=== PATIENT | female | born 1940 | race Caucasian/White ===

== ENCOUNTER → 2018-01-26 09:55 | Outpatient (CLI) | payer MEDICARE, SELFPAY | PROVIDERS: Referring Provider Nurse Practitioner; Visit Provider Nurse Practitioner | DX: N39.0 Urinary tract infection, site not specified (principal) | CPT/HCPCS: 87086 ==

== ENCOUNTER → 2019-04-08 10:32 | Outpatient (CLI) | payer MEDICARE, SELFPAY ==
[2019-01-18 10:22] VITALS: BMI 34.3
--- NOTE | 2019-04-08 11:32 | CT_ITS ---
STUDY: CT SCAN LOWER EXTREMITY RIGHT REASON FOR EXAM: Female, 78 years old. RT KNEE, JULIO CESAR PROTOCOL RADIATION DOSAGE (If Supplied By Facility): CTDIvol = ( 35.6 ) mGy, DLP = ( 2496.70 ) mGycm. Individualized dose optimization techniques were used for this CT.? TECHNIQUE: Multiple axial tomographic images were obtained from the hip joint down to the ankle joint. This is a pre robotic surgery tiny examination. COMPARISON: None. FINDINGS: Mild degree of the osteoarthritis of the hip joint with the spurring along the medial and lateral aspect of the femoral head. Marked degree of joint space narrowing along the medial compartment of knee joint with degenerative osteoarthritis. Moderate degree of narrowing of the patellofemoral joint with degenerative spurring. CT/Extremity Lower without Contra IMPRESSION: Preoperative scanning of the right lower extremity for robotic knee surgery. Electronically Signed: Timothy Steiner, at 14:51 EST , Service support ,
== END ==
PROVIDERS: Family Provider Internal Medicine; PCP Internal Medicine; Referring Provider Orthopaedic Surgery; Visit Provider Orthopaedic Surgery
DX: M17.12 Unilateral primary osteoarthritis, left knee (principal); M21.162 Varus deformity, not elsewhere classified, left knee; M17.11 Unilateral primary osteoarthritis, right knee; M21.161 Varus deformity, not elsewhere classified, right knee
CPT/HCPCS: 73700

== ENCOUNTER 2019-05-03 08:15 | Observation (INO) | payer MEDICARE, SELFPAY ==
[2019-01-18 10:22] VITALS: BMI 34.3
[2019-04-08 11:05] VITALS: BP 138/95; PULSE 82; RESP 16; TEMP 36.2; O2SAT 97; BMI 33.2
--- NOTE | 2019-04-08 11:16 | SDCEKG_ITS ---
Test Reason : Blood Pressure : / mmHG Vent. Rate : 072 BPM Atrial Rate : 072 BPM P-R Int : 154 ms QRS Dur : 120 ms QT Int : 438 ms P-R-T Axes : 048 -06 101 degrees QTc Int : 479 ms Normal sinus rhythm Left bundle branch block Abnormal ECG Confirmed by PRASANNA TOLBERT, EMILIANO ([id number]), copy editor MABEL FREIRE ([id number]) on 04/12/2019 12:10:25 PM Referred By: Huber Jean-Baptiste Confirmed By:EMILIANO MIMS MD
[2019-04-08 11:42] LABS: Absolute Lymphocyte Count 1.89 X10^3/uL (0.83-4.51); Absolute Neutrophil Count 3.3 X10^3/uL (2.0-7.7); Basophil# 0.04 X10^3/uL; Basophil% 0.7 % (0-1); Eosinophil# 0.17 X10^3/uL; Eosinophils% 2.8 % (0-5); Hematocrit 45.1 % (37-47); Hemoglobin 14.8 g/dL (12.0-15.0); Lymphocyte # 1.89 X10^3/ul (4.0); Lymphocyte % 31.6 % (19-41); Mean Corp Hgb Conc 32.8 g/dL (32-36); Mean Corpuscular Hgb 31.1 pg (27.0-32.0); Mean Corpuscular Volume 94.7 fL (81-99); Mean Platelet Vol. 9.7 fl (6.2-12.0); NRBC Flagged by Analyzer 0 % (0-5); Neutrophil # 3.28 X10^3/uL (2.7-7.7); Neutrophil % 54.7 % (47-70); Platelet Count 181 K/mm3 (150-450); RBC Distribution Width CV 12.5 % (11.6-14.6); RBC Distribution Width SD 44.1 fl (35.1-43.9); Red Blood Count 4.76 M/mm3 (4.2-5.4)
[2019-04-08 11:57] LABS: Anion Gap 3 (5-15); BUN 21 mg/dL (7-18); BUN/Creat Ratio 25.4 RATIO (10-20); Calcium,Total 9.3 mg/dL (8.5-10.1); Chloride 108 mmol/L (98-107); Creatinine, Serum 0.83 mg/dL (0.55-1.02); EST Glomerular Filtration Rate 71 mL/min (>60); Est Glom Filt Rate - Afr Amer 85 mL/min (>60); Estimated Creatinine Clearance 46.68 ml/min; Glucose 104 mg/dL (74-106); Potassium 4.1 mmol/L (3.5-5.1); Sodium Level 141 mmol/L (136-145)
[2019-05-03] VITALS (10 sets, daily range): BP systolic 85–148; BP diastolic 51–97; PULSE 68–96; RESP 16–18; TEMP 35.9–36.7; O2SAT 96–100; BMI 33.2
[2019-05-03] MEDS: Acetaminophen 500 MG Tablet 1000 MG PO ×3 (06:42→20:58)
[2019-05-03] MEDS: Magnesium Sulfate 4gm/100mL 4 GM/100 ML IV.SOLN. IV (06:42)
[2019-05-03] MEDS: Gabapentin 600 MG Tablet PO (06:43)
[2019-05-03] MEDS: Lactated Ringers 1,000 ML 100 ML IV ×3 (06:45→10:39)
[2019-05-03 07:46] LABS: Bedside Glucose 102 mg/dL (70-110)
--- NOTE | 2019-05-03 08:00 | KNEE_PTH ---
PATIENT: COLTON DIAZ LOC: [facility]3 U#:[id number] AGE/SX: 79/F ROOM: MS323 RE05/03/[address]: Dr. Huber Jean-Baptiste DO : 1940 BED: 1 DIS: 05/04/2019 SPEC #: [id number] RECD: 05/03/19 14:16 STATUS: CHRIS REObie #: [id number] KENNY: 05/03/19 08:[address]: Huber Jean-Baptiste DEPT: SURGICAL PATHOLOGY RECD BY: Reji Burton ENTERED: 05/03/19 14:16 SP TYPE: TOTAL KNEE OTHR DR: Dr. Shu Clements MD Tissues: Knee, NOS Procedures: Decalcification bone/plaque Surgery Specimen Level IV HEADER OPERATION: ERAS, total knee replacement robotic arm assist PRE-OP DIAGNOSIS: Bilateral knee osteoarthritis TISSUE SUBMITTED: Right knee bone MICROSCOPIC DIAGNOSIS Bone and soft tissue of right knee, total knee resection: Severe degenerative joint disease. AM:farida 05/06/19 MICROSCOPIC DESCRIPTION Slides are reviewed. GROSS DESCRIPTION Received is one container designated right knee bone. The specimen consists of multiple fragments of herbert-yellow bone measuring in aggregate 10 x 9 x 3 cm. No soft tissue is identified. A number of bony fragments contain articular surfaces consistent with tibial plateau and femoral condyle and displaying prominent osteophyte formation, eburnation, and bone erosion. Wheelchair Rental Clerk sections are submitted in one cassette after decalcification. / SJ:farida 05/03/19 TC:5 CPT: 77048, 51856
[2019-05-03] MEDS: Cefazolin 2 GM in 0.9% Normal Saline 100 ML IV (08:03)
[2019-05-03] MEDS: Betamethasone/Betamethasone 30 MG/5 ML Vial (09:57)
--- NOTE | 2019-05-03 10:24 | PCM.OPRPT ---
Report of Operation Date of Procedure: 05/03/19 Pre-Operative Diagnosis: OA b/l knees Post-Operative Diagnosis: same Surgery/Procedure Performed:: Right TKR -- robotically assisted. Intra-articular injection left knee electronics production supervisor: Tay Sanders Anesthesiologist: Mark Delcid - Admit VTE Documentation VTE Present on Admission: No VTE Mechan Device Prophylaxis: SCD's, Thigh High THEODORE Hose VTE Pharm Prophylaxis ordered?: Yes
--- NOTE | 2019-05-03 10:40 | RAD_ITS ---
STUDY: X-RAY - RIGHT KNEE REASON FOR EXAM: Female, 79 years old. POST OP KNEE REPLACEMENT TECHNIQUE: AP and lateral view(s) of the knee. COMPARISON: None. FINDINGS: The patient is status post total knee replacement. There is good alignment. Postoperative soft tissue changes. RAD/Knee 1 or 2 Views IMPRESSION: Total knee replacement. There is good alignment. Postoperative soft tissue changes. Electronically Signed: Timothy Steiner, at 15:02 EST , Service support ,
[2019-05-03 11:01] LABS: Hematocrit 39.5 % (37-47); Hemoglobin 13.1 g/dL (12.0-15.0); Mean Corp Hgb Conc 33.2 g/dL (32-36); Mean Corpuscular Hgb 31.2 pg (27.0-32.0); Mean Platelet Vol. 9.4 fl (6.2-12.0); Platelet Count 144 K/mm3 (150-450); RBC Distribution Width CV 12.3 % (11.6-14.6); RBC Distribution Width SD 42.5 fl (35.1-43.9); White Blood Count 7.3 K/mm3 (4.4-11.0)
[2019-05-03 11:14] LABS: Anion Gap 5 (5-15); BUN 15 mg/dL (7-18); BUN/Creat Ratio 18.1 RATIO (10-20); Calcium,Total 8.8 mg/dL (8.5-10.1); Chloride 111 mmol/L (98-107); Creatinine, Serum 0.83 mg/dL (0.55-1.02); EST Glomerular Filtration Rate 70 mL/min (>60); Est Glom Filt Rate - Afr Amer 85 mL/min (>60); Glucose 117 mg/dL (74-106); Potassium 3.5 mmol/L (3.5-5.1); Sodium Level 142 mmol/L (136-145)
[2019-05-03] MEDS: Cefazolin 1 GM/50 ML BAG IV (16:07)
[2019-05-03] MEDS: oxyCODONE 5 MG Tablet PO (16:37)
[2019-05-04] MEDS: Cefazolin 1 GM/50 ML BAG IV (00:08)
[2019-05-04] MEDS: 0.9% Saline Lock 10 ML Syringe IV (01:02)
[2019-05-04 05:17] VITALS: BP 138/64; PULSE 65; RESP 16; TEMP 36.6; O2SAT 93
[2019-05-04] MEDS: Acetaminophen 500 MG Tablet 1000 MG PO ×2 (05:30→14:58)
[2019-05-04 07:46] LABS: Hematocrit 39.3 % (37-47); Hemoglobin 13.1 g/dL (12.0-15.0); Mean Corp Hgb Conc 33.3 g/dL (32-36); Mean Corpuscular Hgb 31.2 pg (27.0-32.0); Mean Corpuscular Volume 93.6 fL (81-99); Mean Platelet Vol. 9.7 fl (6.2-12.0); Platelet Count 149 K/mm3 (150-450); RBC Distribution Width CV 12.2 % (11.6-14.6); RBC Distribution Width SD 42.3 fl (35.1-43.9); White Blood Count 11.3 K/mm3 (4.4-11.0)
[2019-05-04 07:55] LABS: Anion Gap 6 (5-15); BUN 16 mg/dL (7-18); BUN/Creat Ratio 13.9 RATIO (10-20); Calcium,Total 8.9 mg/dL (8.5-10.1); Chloride 107 mmol/L (98-107); Creatinine, Serum 1.15 mg/dL (0.55-1.02); EST Glomerular Filtration Rate 48 mL/min (>60); Est Glom Filt Rate - Afr Amer 58 mL/min (>60); Estimated Creatinine Clearance 33.13 ml/min; Glucose 134 mg/dL (74-106); Potassium 4.6 mmol/L (3.5-5.1); Sodium Level 139 mmol/L (136-145)
[2019-05-04 08:18] VITALS: BP 121/71; PULSE 61; RESP 16; TEMP 36.6; O2SAT 95
--- NOTE | 2019-05-04 08:21 | PN.ORTHO_ITS ---
Subjective: Patient sitting at bedside eating breakfast. Patient states pain is well- managed. Denies chest pain, shortness breath, calf pain, nausea vomiting. Patient states ready for discharge home today. No complaints Objective: Dressings clean dry intact. Negative signs and symptoms of DVT. I did review labs and vitals all noted in the medical record. Patient is afebrile, neurovascular is otherwise intact. Patient is no respiratory distress speaking in full sentences. - Physical Exam Vitals/I&O's: Vital Signs Temp Pulse Resp BP Pulse Ox 97.8 F 61 16 121/71 H 95 05/04/19 08:18 05/04/19 08:18 05/04/19 08:18 05/04/19 08:18 05/04/19 08:18 Oxygen Flow Rate (L/min) 6 Oxygen Delivery Method Room Air Weight: 87.7 kg Body Mass Index (BMI) 33.2 Intake and Output for Last 24 Hours 05/02/19 05/03/19 05/04/19 23:59 23:59 23:59 Intake Total 3326.67 / 3326.67 865.0 / 865.0 Balance 3326.67 / 3326.67 865.0 / 865.0 General: Alert, Oriented x3, Cooperative HEENT: PERRLA Oral: Moist Mucosa Neurological: Cranial nerves II-XII grossly intact Psych/Mental Status: Normal Affect, Alert and oriented to time, place, person, mood and affect Laboratory Results 05/03/19 10:43: WBC 7.3, RBC 4.20, Hgb 13.1, Hct 39.5, MCV 94.0, MCH 31.2, MCHC 33.2, RDW Std Deviation 42.5, RDW Coeff of Jasmyn 12.3, Plt Count 144 L, MPV 9.4 05/03/19 10:43: Sodium 142, Potassium 3.5, Chloride 111 H, Carbon Dioxide 26.0, Anion Gap 5, BUN 15, Creatinine 0.83, Estim Creat Clear Calc 45.90, Est GFR (MDRD) Af Amer 85, Est GFR (MDRD) Non-Af 70, BUN/Creatinine Ratio 18.1, Glucose 117 H, Calcium 8.8 05/04/19 07:30: WBC 11.3 H, RBC 4.20, Hgb 13.1, Hct 39.3, MCV 93.6, MCH 31.2, MCHC 33.3, RDW Std Deviation 42.3, RDW Coeff of Jasmyn 12.2, Plt Count 149 L, MPV 9.7 05/04/19 07:30: Sodium 139, Potassium 4.6, Chloride 107, Carbon Dioxide 26.0, Anion Gap 6, BUN 16, Creatinine 1.15 H, Estim Creat Clear Calc 33.13, Est GFR (MDRD) Af Amer 58 L, Est GFR (MDRD) Non-Af 48 L, BUN/Creatinine Ratio 13.9, Glucose 134 H, Calcium 8.9 Current Medications Acetaminophen (Tylenol) 1,000 mg PO Q8 [facility] Last Admin: 05/04/19 05:30 Dose: 1,000 mg Documented by: Aspirin (Aspirin, Baby) 81 mg PO BID [facility] Sodium Chloride () 500 mls @ 15 mls/hr IV PRN PRN PRN Reason: Blood Transfusion Sodium Chloride () 250 mls @ 15 mls/hr IV .[id number] PRN PRN Reason: Saline Flush Sodium Chloride () 250 mls @ 15 mls/hr IV .[id number] PRN PRN Reason: Additional IVPB Infusion Insulin Human Lispro (Humalog Kwikpen (Bkc)) 1 - 6 unit SC Q4H PRN PRN; Protocol PRN Reason: BG>/= 180, SEE PROTOCOL Losartan Potassium (Cozaar) 25 mg PO DAILY [facility] Last Admin: 05/03/19 12:07 Dose: Not Given Documented by: Magnesium Oxide (Mag-Ox 400) 400 mg PO DAILY [facility] Multivitamins (Multivitamin) 1 tablet PO DAILY@0800 [facility] Ondansetron HCl (Zofran) 4 mg IV Q8H PRN PRN PRN Reason: NAUSEA Oxycodone HCl (Oxyir) 5 - 10 mg PO Q4H PRN PRN PRN Reason: Pain Score 4-10/10 Last Admin: 05/03/19 16:37 Dose: 10 mg Documented by: Pantoprazole Sodium (Protonix) 40 mg PO DAILY [facility] Last Admin: 05/03/19 12:07 Dose: Not Given Documented by: Promethazine HCl (Phenergan) 12.5 mg IM Q6H PRN PRN; Protocol PRN Reason: NAUSEA/VOMITING Senna/Docusate Sodium (Senokot-S, Melinda-Colace) 2 tablet PO BID [facility] Last Admin: 05/03/19 20:58 Dose: Not Given Documented by: Sodium Chloride () 10 - 40 ml IV UD PRN PRN Reason: SALINE FLUSH Last Admin: 05/04/19 01:02 Dose: 10 ml Documented by: Medical Necessity - Tobacco Use Smoking Status: Never smoker Tobacco Use: Non-smoker Assessment/Plan All Active Problems (Last Updated 01/16/18 @ 16:30 by Anika España) Bladder spasm (Acute) Dysuria (Acute) Bronchitis (Acute) UTI (urinary tract infection) (Acute) Coughing (Acute) Maxillary sinusitis (Acute) Status post right total knee arthroplasty Plan 1. Continue all pain medications as prescribed 2. Continue physical therapy, weight-bear as tolerated with walker 3. Aspirin 81 mg 1 p.o. every 12 hours x30 days for postop DVT prophylaxis 4. Encourage incentive spirometry 5. Continue physical therapy outpatient 6. Discharge home today after p.m. therapy
[2019-05-04] MEDS: Losartan Potassium 25 MG Tablet PO (08:24)
[2019-05-04] MEDS: Pantoprazole Sodium 40 MG Tablet PO (08:24)
[2019-05-04] MEDS: Multivitamins,Therapeutic Tablet 1 TABLET PO (08:24)
[2019-05-04] MEDS: Aspirin 81 MG TAB.CHEW PO (08:24)
--- NOTE | 2019-05-04 08:28 | PCM.DC.TKR ---
Discharge Diet: No Restrictions Discharge Activity: May Not Drive, May Shower, Use Walker May shower in (days): 3 Ice area for (Minutes): 20 - each hour while awake. Weight Bearing Status: Weight bearing as tolerated Elevate: Operative Extremity Additional Activity Instructions:: Wear elastic stockings for 2 weeks after your surgery. Call your doctor if your incision/area has: Continuous Slow Oozing, Sudden Increased Bleeding, Increased Pain/ Swelling, Increased Redness, Foul Smelling Discharge Call your doctor if you observe: Fever of 101 or Higher, Coldness, Increased Pain - in extremity, Numbness or Tingling, Change in Color, Calf discomfort, Uncontrolled pain Change Dressing in (Days):: 0 - and daily as needed. Remove Dressing in (days):: 8 Cleanse incision/area with: Soap & Water Allergies/Adverse Reactions: Allergies No Known Allergies Allergy (Verified 05/03/19 06:22) Medications to take at Discharge magnesium 250 mg tablet 500 mg PO DAILY 01/16/18 multivitamin,[id number] 1 tab PO DAILY 01/16/18 pantoprazole 40 mg tablet,delayed release 40 mg PO DAILY 01/16/18 Losartan Potassium [Cozaar] 25 mg PO DAILY 04/08/19 Meloxicam [Mobic] 15 mg PO DAILY 04/08/19 Acetaminophen [Tylenol] 1,000 mg PO Q8 #90 tab 05/04/19 Aspirin [Aspirin, Baby] 81 mg PO BID #60 tab.chew 05/04/19 Oxycodone [Oxyir] 5 - 10 mg PO Q4H PRN PRN 7 Days #84 tab 05/04/19 Senna/Docusate Sodium [Senokot-S] 2 tab PO BID tab 05/04/19 The following prescriptions were given: Aspirin [Aspirin, Baby] 81 mg PO BID #60 tab.chew Transmission Status: Pending to [facility] Oxycodone [Oxyir] 5 - 10 mg PO Q4H PRN PRN 7 Days #84 tab PRN Reason: Pain Score 4-10/10 Transmission Status: Sent to [facility] Acetaminophen [Tylenol] 1,000 mg PO Q8 #90 tab Transmission Status: Pending to [facility] Primary Care Physician: Shu Clements [Primary Care Provider] - Test Results: Test results from this visit will be discussed in further detail at your follow-up appointment, if applicable. Please Follow Up With: Tay Sanders PA-C When: see pink sheet
[2019-05-04 08:29] VITALS: BP 149/70; PULSE 60; RESP 16; TEMP 36.4; O2SAT 97
--- NOTE | 2019-05-04 08:31 | NURSING ---
Addendum entered by Abeba Elder 05/04/19 10:14: pt spit out magnesium and this RN wasted with 3 pills that fell on floor. Original Note: pt able to swallow multivitamin and then attempted to take magnesium pill but states unable due to sore throat and will not be taking it until it resolves. Pt then accidentally dropped remaining 3 pills: aspirin, losartan and protonix on floor. This RN retrieved and disposed of in receptacle in med room.
--- NOTE | 2019-05-04 09:50 | CASEMGMT ---
MERLYN MAYERS Face to Face with patient for initial transition planning/care coordination assessment. RN CM introduced self and role at [facility]. Patient sitting in chair, alert and oriented, daughter at bedside. Patient willing to participate in assessment and is able to answer all questions appropriately. Care providers, pharmacy, and demographics verified. Patient wishes to discharge home and is setup with [facility] outpatient therapy for Friday05/07/19. Patient states she has no further needs or concerns at this time. CM to follow for discharge planning needs that may arise. PCP: Starr Specialists: lev zamora Preferred Pharmacy: [facility]. Scripts being filled here at [facility] retail Insurance: [employer] Prescription Benefit: yes Living Will/HPOA: Amelia Portillo daughter LNOK: daughter Living Arrangements: Patient lives alone in 2 story home with bed and bath 1st floor. Patient independent at home prior to surgery. Transportation: Daughter DME/HHC: Patient has walker, shower chair, raised toilet, grab bars. Patient has outpatient therapy setup at [facility] for 05/07. Disposition Plan: Patient to discharge home with outpatient therapy, family support, and follow-up plans in place. Lovely EUGENE, RN, CM
[2019-05-04 15:35] VITALS: BP 138/72; PULSE 75; RESP 18; TEMP 36.5; O2SAT 95
== END 2019-05-04 15:35 | disposition home or self-care (01) ==
LOC: MS3 08:24
PROVIDERS: Admitting Provider Orthopaedic Surgery; Family Provider Internal Medicine; PCP Internal Medicine; Referring Provider Orthopaedic Surgery; Visit Provider Orthopaedic Surgery
PROC: 0SRC0JZ Replacement of Right Knee Joint with Synthetic Substitute, Open Approach (ICD-10-PCS; CPT 27447; principal; 2019-05-03 07:30)
DX: M17.0 Bilateral primary osteoarthritis of knee (principal); Z79.899 Other long term (current) drug therapy; Z79.82 Long term (current) use of aspirin; I10 Essential (primary) hypertension; I44.7 Left bundle-branch block, unspecified; K21.9 Gastro-esophageal reflux disease without esophagitis
CPT/HCPCS: 01400; 20610; 27447; 64447; S2900; 36415; 73560; 80048; 82962; 85025; 85027; 87081; 88305; 88311; 93005; 96361; 96365; 96366; 97116; 97161; 97167; 97530; 97535; 99218; 99251; C1776; J7120; A4216; G0378; G0379; G0463; J0702